=== PATIENT | female | born 1955 | race Caucasian/White ===

== ENCOUNTER 2018-08-28 09:52 | Day surgery (SDC) | payer BC ==
[~2018-08-28 09:52] MED LIST: Sodium Chloride 0.9% 10 ML Syringe FLUSH PRN; Sodium Chloride 0.9% 2.5 ML Syringe FLUSH PRN
--- NOTE | 2018-08-28 10:52 | PCM.PREANE ---
Preanesthetic Assessment - Anesthesia/Transfusion/Family Hx Anesthesia History: Prior Anesthesia Without Reaction Family History of Anesthesia Reaction: No Transfusion History: No Prior Transfusion(s) Intubation History: Unknown - Review of Systems General: No Symptoms Pulmonary: No Symptoms Cardiovascular: No Symptoms Gastrointestinal: No Symptoms Neurological: No Symptoms Other: Reports: None - Physical Assessment O2 Sat by Pulse Oximetry: 98 Respiratory Rate: 16 Vital Signs: Last Vital Signs Temp 36 C 08/28/18 10:12 Pulse 86 08/28/18 10:12 Resp 16 08/28/18 10:12 BP 167/85 H 08/28/18 10:12 Pulse Ox 98 08/28/18 10:12 Height: 1.66 m Weight: 113.398 kg ASA Class: 2 Mental Status: Alert & Oriented x3 Airway Class: Mallampati = 2 Dentition: Reports: Normal Dentition, Broken Tooth/Teeth (small chips on front two upper incisors), Missing Tooth/Teeth (#9) Thyro-Mental Finger Breadths: 3 Mouth Opening Finger Breadths: 2 (very small mouth) ROM/Head Extension: Full Lungs: Clear to Auscultation, Normal Respiratory Effort Cardiovascular: Regular Rate, Regular Rhythm - Lab Values: Laboratory Last Values WBC 7.15 K/uL (4.0-11.0) 08/28/18 10:22 RBC 4.19 M/uL (4.30-5.90) L 08/28/18 10:22 Hgb 13.5 g/dL (12.0-16.0) 08/28/18 10:22 Hct 39.1 % (36.0-46.0) 08/28/18 10:22 MCV 93.3 fL (80.0-98.0) 08/28/18 10:22 MCH 32.2 pg (27.0-32.0) H 08/28/18 10:22 MCHC 34.5 g/dL (31.0-37.0) 08/28/18 10:22 RDW Std Deviation 46.7 fl (28.0-62.0) 08/28/18 10:22 RDW Coeff of Gabriella 14 % (11.0-15.0) 08/28/18 10:22 Plt Count 218 K/uL (150-400) 08/28/18 10:22 MPV 9.60 fL (7.40-12.00) 08/28/18 10:22 Nucleated RBC % 0.0 /100WBC 08/28/18 10:22 Nucleated RBCs # 0 K/uL 08/28/18 10:22 POC Glucose 88 mg/dL (60-110) 08/28/18 10:37 - Allergies Allergies/Adverse Reactions: Allergies Allergy/AdvReac Type Severity Reaction Status Date / Time No Known Allergies Allergy Verified 08/23/18 14:53 - Blood Blood Available: No - Anesthesia Plan Pre-Op Medication Ordered: None - Acknowledgements Anesthesia Type Planned: General Anesthesia Pt an Appropriate Candidate for the Planned Anesthesia: Yes Alternatives and Risks of Anesthesia Discussed w Pt/Guardian: Yes Pt/Guardian Understands and Agrees with Anesthesia Plan: Yes PreAnesthesia Questionnaire HEENT History: Reports: Allergic Rhinitis, Cataract, Other (See Below) Other HEENT History: wears glasses Cardiovascular History: Reports: Hypertension Gastrointestinal History: Reports: None Genitourinary History: Reports: None Musculoskeletal History: Reports: Osteoarthritis Neurological History: Reports: Other (See Below) Other Neuro History: hx of Tubercular Meningitis Endocrine/Metabolic History: Reports: Diabetes, Type II, Obesity/BMI 30+ Oncologic (Cancer) History: Reports: Breast (ledt) - Infectious Disease History Infectious Disease History: Reports: Other (See Below) (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) - Past Surgical History HEENT Surgical History: Reports: Cataract Surgery GI Surgical History: Reports: Cholecystectomy Female Surgical History: Reports: Breast Biopsy, Other (See Below) Other Female Surgeries/Procedures: right breast bx, left breast lumpectomy with lymph node dissection Oncologic Surgical History: Reports: Lumpectomy Other Oncologic Surgeries/Procedures: Lymph node dissection - SUBSTANCE USE Smoking Status *Q: Never Smoker Recreational Drug Use History: No - HOME MEDS Home Medications: Home Meds Benazepril [Lotensin] 5 mg PO DAILY 08/23/18 [History] Loratadine/Pseudoephedrine [Claritin-D 24 Hour Tablet] 1 tab PO DAILY 08/23/18 [ History] Metoprolol Succinate 50 mg PO BID 08/23/18 [History] Naproxen 500 mg PO BID 08/23/18 [History] hydroCHLOROthiazide [Hydrochlorothiazide] 25 mg PO DAILY 08/23/18 [History] metFORMIN [Glucophage] 500 mg PO BIDMEALS 08/23/18 [History] - CURRENT (IN HOUSE) MEDS Current Meds: Current Medications Sodium Chloride (Saline Flush) 10 ml FLUSH ASDIRECTED PRN PRN Reason: Keep Vein Open Sodium Chloride (Saline Flush) 2.5 ml FLUSH ASDIRECTED PRN PRN Reason: Keep Vein Open
[2018-08-28] MEDS ORDERED: Ondansetron 4 MG/2 ML SDV ONE (11:11)
[2018-08-28] MEDS ORDERED: fentaNYL 100 MCG/2 ML SDV ONE (11:12)
[2018-08-28] MEDS ORDERED: Propofol 200 MG/20 ML SDV ONE (11:12)
[2018-08-28] MEDS ORDERED: Ketorolac 30 MG/ML SDV ONE (12:06)
[2018-08-28] MEDS ORDERED: fentaNYL 100 MCG/2 ML SDV IVPUSH PRN (12:14)
[2018-08-28] MEDS ORDERED: Ondansetron 4 MG/2 ML SDV IVPUSH ONE (12:14)
--- NOTE | 2018-08-28 13:15 | PCM.OPNOTE ---
- General Post-Op/Procedure Note Date of Surgery/Procedure: 08/28/18 Operative Procedure(s): Operative hysteroscopy, directed endometrial biopsy x 2 , D&C Findings: Intrauterine scarring, uterus sounds to 8 cm. No intacavitary lesions identified. Pre Op Diagnosis: Postmenopausal bleeding Post-Op Diagnosis: Same Anesthesia Technique: General LMA Primary Surgeon: Jennifer Riley Fluid Replacement, Intraop: 400 EBL in mLs: 10 Complications: none known Condition: Stable Free Text/Narrative:: Intake & Output 08/27/18 08/28/18 08/28/18 22:59 06:59 14:59 Intake Total 400 Balance 400 Dictation [id number]
--- NOTE | 2018-08-28 14:51 | OR ---
SURGEON: Jennifer Riley M.D. DATE OF PROCEDURE: 08/28/2018 PREOPERATIVE DIAGNOSIS: Postmenopausal bleeding. POSTOPERATIVE DIAGNOSIS: Postmenopausal bleeding. PROCEDURES: Operative hysteroscopy, directed endometrial biopsy x2, dilation and curettage of endometrium. ANESTHESIA: General LMA. ESTIMATED BLOOD LOSS: Less than 10 mL. FLUIDS: 400 mL crystalloid. COMPLICATIONS: None. FINDINGS: Uterus sounds to approximately 8 cm. The uterus with intrauterine scarring synechiae noted. There were no overt endometrial lesions noted, however. DISPOSITION: The patient to PACU in stable condition. PROCEDURE IN DETAIL: Jazmin is a 63-year-old postmenopausal female who has had an intermittent episode of bleeding vaginally. The pelvic sonogram reveals a slightly thickened endometrium at 9 mm. Attempted endometrial biopsy in the office was not met with success as she had a stenotic cervix. Therefore the patient opted to proceed with surgical intervention via hysteroscopy for further evaluation of endometrium, especially given her history of breast cancer. The patient was prepped with Cytotec orally the night before and the morning of the procedure. The risks of procedure have been discussed, proper consent obtained. The patient was taken to the operating room where she underwent general LMA, was placed in modified dorsal lithotomy position, was prepped and draped in the usual sterile fashion. The bladder was drained. Time-out was performed. Speculum was introduced in the vagina. The cervix was visualized. The posterior lip of cervix was grasped with an Allis clamp. The cervix was easily dilated to 6 mm. Large amount of mucus was returned with cannulation of the cervix. The uterus now sounded to 8 cm. A 5mm hysteroscope was introduced using normal saline as distention media and was able to visualize the intrauterine cavity. The right ostia was able to be visualized. Left ostia was obscured. There was quite a bit of scarring within the endometrial cavity. Overall, it appears fairly atrophic. No overt lesions were noted. Directed biopsy near the right cornua and the left posterior endometrium region was obtained followed by gentle curettage of the endometrium after removing the hysteroscope, photographs were taken of the findings. Fluid deficit was 85 mL. Specimens were sent to pathology. The cervix inspected, found to be hemostatic. All instruments were removed from the vagina. Hemostasis remained evident. Sponge count was correct. The patient will go to PACU in stable condition, specimen to pathology. MOUNA / MARY ANN /[id number] TREVOR
== END 2018-08-28 14:09 | disposition home or self-care (01) ==
LOC: MW.SDS 09:52
PROVIDERS: ATTEND Obstetrics & Gynecology
DX: N95.0 Postmenopausal bleeding (principal); N85.8 Other specified noninflammatory disorders of uterus; N85.6 Intrauterine synechiae; I10 Essential (primary) hypertension; E11.9 Type 2 diabetes mellitus without complications; Z85.3 Personal history of malignant neoplasm of breast; Z79.84 Long term (current) use of oral hypoglycemic drugs; Z79.1 Long term (current) use of non-steroidal anti-inflammatories (NSAID); Z79.899 Other long term (current) drug therapy
CPT/HCPCS: 36415; 58558; 82962; 85027; 88305; J1885; J2001; J2405; J2704; J3010; 00952